=== PATIENT | male | born 1935 | race Caucasian/White ===

== ENCOUNTER 2022-02-07 07:02 | Emergency (ER) | payer MEDICARE ==
[2022-02-07] MEDS ORDERED: fentaNYL 100 MCG/2 ML SDV IM ONE (08:08)
== END 2022-02-07 09:18 | disposition home or self-care (01) ==
LOC: JP.ED 07:02
DX: M75.02 Adhesive capsulitis of left shoulder (principal); I48.91 Unspecified atrial fibrillation; Z88.0 Allergy status to penicillin; Z79.01 Long term (current) use of anticoagulants; Z79.899 Other long term (current) drug therapy; Z95.0 Presence of cardiac pacemaker
CPT/HCPCS: 96372; 99283; J3010

== ENCOUNTER 2022-03-03 17:59 | Emergency (ER) | payer MEDICARE ==
[2022-03-03] MEDS ORDERED: Sodium Chloride 0.9% 10 ML Syringe FLUSH PRN ×2 (18:47→20:00)
[2022-03-03] MEDS ORDERED: Ondansetron 4 MG/2 ML SDV IVPUSH ONE (18:47)
[2022-03-03] MEDS ORDERED: HYDROmorphone 0.5 MG/0.5 ML Syringe IVPUSH ONE (18:47)
[2022-03-03] MEDS ORDERED: Sodium Chloride 0.9% 1,000 ML IV SCH (19:00)
[2022-03-03 19:31] LABS: ESTIMATED GFR 59 mL/min (>60)
[2022-03-03] MEDS ORDERED: Phytonadione 10 MG in Sodium Chloride 0.9% 50 ML IV ONE (20:08)
[2022-03-03] MEDS: HYDROmorphone 0.5 MG/0.5 ML Syringe IVPUSH PRN (22:34)
[2022-03-04] MEDS: HYDROmorphone 0.5 MG/0.5 ML Syringe IVPUSH PRN (04:18)
== END 2022-03-04 04:51 | disposition home or self-care (01) ==
LOC: JP.ED 17:59
DX: C74.01 Malignant neoplasm of cortex of right adrenal gland (principal); I48.11 Longstanding persistent atrial fibrillation; K66.1 Hemoperitoneum; Z88.0 Allergy status to penicillin; Z79.899 Other long term (current) drug therapy; Z79.01 Long term (current) use of anticoagulants; Z20.822 Contact with and (suspected) exposure to COVID-19
CPT/HCPCS: 36415; 36430; 74176; 80053; 81001; 85025; 85610; 85730; 86850; 86900; 86901; 96361; 96365; 96375; 96376; 99284; J1170; J2405; J3430; J3490; J7030; P9017; U0002